=== PATIENT | female | born 1980 | race Caucasian/White ===

== ENCOUNTER 2021-06-06 02:44 | Emergency (ER) | payer MEDICAID ==
[~2021-06-06] VITALS: Ht 165.1 cm; Wt 104.3 kg
[2021-06-06 02:48] VITALS: BP 121/71
--- NOTE | 2021-06-06 02:52 | NUR ---
TO LOBBY FOLLOWING TRIAGE
--- NOTE | 2021-06-06 03:00 | NUR ---
ABDOMINAL PAIN AT HOME X 1.5 HOURS. TRIED TO DRINK WATER BUT FELT NAUSEA
--- NOTE | 2021-06-06 06:31 | NUR ---
Dr. Archer examining patient.
[2021-06-06] MEDS ORDERED: DICYCLOMINE HCL LIQUID 20 MG, ALUMINUM HYD/MAG/SIMETHICONE 30 ML, LIDOCAINE VISCOUS 2% ... PO ONE ×3 (06:35)
[2021-06-06] MEDS ORDERED: OMEP40EC24 PO (06:45)
[2021-06-06] MEDS ORDERED: ONDA8TAB87 PO (06:45)
[2021-06-06] MEDS ORDERED: IBUP-2213 PO (06:45)
[2021-06-06] MEDS ORDERED: ALUMINUM HYD/MAG/SIMETHICONE 30 ML UDC ONE (06:58)
[2021-06-06] MEDS ORDERED: DICYCLOMINE HCL LIQUID 10 MG/5 ML UDC ONE (06:58)
[2021-06-06 07:00] VITALS: BP 121/71
--- NOTE | 2021-06-06 07:00 | NUR ---
Patient discharged with v/s stable. Written and verbal after care instructions given and explained. Patient alert, oriented and verbalized understanding of instructions. Ambulatory with steady gait. All questions addressed prior to discharge. ID band removed. Patient advised to follow up with PMD. Rx of REILOSEC & ZOFRAN given. Patient educated on indication of medication including possible reaction and side effects. Opportunity to ask questions provided and answered.
== END 2021-06-06 07:00 | disposition home or self-care (01) ==
LOC: MED 02:44
DX: R10.13 Epigastric pain (principal); R11.2 Nausea with vomiting, unspecified
CPT/HCPCS: 99283

== ENCOUNTER 2022-03-27 14:26 | Emergency (ER) | payer MEDICAID ==
[~2022-03-27] VITALS: Ht 165.1 cm; Wt 107.5 kg
[~2022-03-27 14:26] MED LIST: IBUP-2213 PO; OMEP40EC24 PO; ONDA8TAB87 PO
[2022-03-27 14:34] VITALS: BP 138/79
--- NOTE | 2022-03-27 14:50 | NUR ---
WALKED TO ROOM 4 WITH CO LEFT GROIN PAIN SECOND TO ABCESS. NO FURHTER CO. PT WAS A/OX4, SPEAKS FULL SENTENCES, FOLLOWS COMMAND, DENIES ALFARO AND DIZZINESS. NO SOB. BREATHINGE EVEN.
[2022-03-27] MEDS ORDERED: IBUP-2213 PO (15:10)
[2022-03-27] MEDS ORDERED: SULF-59 PO (15:10)
[2022-03-27] MEDS ORDERED: CEPH-588 PO (15:10)
[2022-03-27 15:15] VITALS: BP 127/67
[2022-03-27] MEDS ORDERED: IBUPROFEN 600 MG TAB PO ONE (15:15)
--- NOTE | 2022-03-27 15:45 | NUR ---
Patient discharged with v/s stable. Written and verbal after care instructions given and explained. Patient verbalized understanding. Ambulatory with steady gait. All questions addressed prior to discharge. Advised to follow up with PMD.
== END 2022-03-27 15:23 | disposition home or self-care (01) ==
LOC: MED 14:26
DX: L03.311 Cellulitis of abdominal wall (principal); R03.0 Elevated blood-pressure reading, without diagnosis of hypertension
CPT/HCPCS: 99284

== ENCOUNTER 2022-03-31 01:45 | Inpatient (IN) | payer MEDICAID ==
[~2022-03-31] VITALS: Ht 165.1 cm; Wt 108.0 kg
[~2022-03-31 01:45] MED LIST changes: +CEPH-588 PO; +SULF-59 PO
[2022-03-31 01:48] VITALS: BP 113/71
[2022-03-31] MEDS ORDERED: cefTRIAXone 1,000 MG in DEXT 5% MINI-BAG PLUS 50 ML IV ONE (01:55)
[2022-03-31 02:18] LABS: BASOPHILS # (AUTO) 0.1 K/uL (0.00-0.22); BASOPHILS % (AUTO) 0.7 % (0.0-2.0); EOSINOPHILS # (AUTO) 0.1 K/uL (0-0.4); HEMATOCRIT 32.8 % (36-48); HEMOGLOBIN 10.8 g/dL (12.0-16.0); LYMPHOCYTES # (AUTO) 2.7 K/uL (2.5-16.5); LYMPHOCYTES % (AUTO) 33.1 % (20.5-51.1); MEAN CORPUSCULAR HEMOGLOBIN 23 pg (27-31); MEAN CORPUSCULAR HGB CONC 33 g/dL (33-37); MONOCYTES # (AUTO) 0.6 K/uL (0.8-1.0); MONOCYTES % (AUTO) 7.3 % (1.7-9.3); NEUTROPHILS # (AUTO) 4.7 K/uL (1.8-7.7); NEUTROPHILS % (AUTO) 57.9 % (42.2-75.2); PLATELET COUNT (AUTO) 342 K/uL (140-450); RED BLOOD CELL COUNT(AUTO) 4.69 MIL/uL (4.20-5.40); RED CELL DISTRIBUTION WIDTH 16.9 % (11.6-13.7); WHITE BLOOD COUNT (AUTO) 8.1 K/uL (4.8-10.8)
--- NOTE | 2022-03-31 02:21 | NUR ---
XR AT BEDSIDE
[2022-03-31] MEDS ORDERED: cefTRIAXone 1,000 MG VIAL ONE (02:23)
--- NOTE | 2022-03-31 02:46 | NUR ---
IRRIGATED AND CLEANED WOUND WITH 30CC OF NS AND GAUZE. APPLIED NON ADHERENT DRESSING AT THE SITE. PATIENT TOLERATED WELL BUT DID COMPLAIN OF BURNING AT THE SITE.
[2022-03-31 03:19] LABS: ALBUMIN 3.6 g/dL (3.4-5.0); ANION GAP 13.9 (8-16); CARBON DIOXIDE 25.3 mmol/L (21-32); CREATININE 1.1 mg/dL (0.6-1.3); POTASSIUM 4.2 mmol/L (3.5-5.1); TOTAL BILIRUBIN 0.2 mg/dL (0.0-1.0)
[2022-03-31] MEDS ORDERED: KETOROLAC 30 MG/ML VIAL IVP ONE (04:05)
[2022-03-31] MEDS ORDERED: VANCOMYCIN PER PHARMACY MC PRN (04:15)
[2022-03-31] MEDS ORDERED: VANCOMYCIN 1GM/DEXT 5% PREMIX 200 ML IV SCH ×2 (04:30→09:00)
[2022-03-31 06:41] LABS: BASOPHILS % (AUTO) 0.6 % (0.0-2.0); EOSINOPHILS # (AUTO) 0.1 K/uL (0-0.4); EOSINOPHILS % (AUTO) 1.1 % (0.0-4.0); HEMATOCRIT 32.7 % (36-48); HEMOGLOBIN 10.6 g/dL (12.0-16.0); LYMPHOCYTES # (AUTO) 2.5 K/uL (2.5-16.5); LYMPHOCYTES % (AUTO) 34.8 % (20.5-51.1); MEAN CORPUSCULAR HEMOGLOBIN 23 pg (27-31); MEAN CORPUSCULAR HGB CONC 32 g/dL (33-37); MEAN CORPUSCULAR VOLUME 70.8 fL (80-94); MONOCYTES # (AUTO) 0.5 K/uL (0.8-1.0); MONOCYTES % (AUTO) 7.6 % (1.7-9.3); NEUTROPHILS % (AUTO) 55.9 % (42.2-75.2); PLATELET COUNT (AUTO) 309 K/uL (140-450); RED BLOOD CELL COUNT(AUTO) 4.63 MIL/uL (4.20-5.40); RED CELL DISTRIBUTION WIDTH 16.7 % (11.6-13.7); WHITE BLOOD COUNT (AUTO) 7.2 K/uL (4.8-10.8)
[2022-03-31 06:56] LABS: ANION GAP 11.3 (8-16); POTASSIUM 4.3 mmol/L (3.5-5.1)
--- NOTE | 2022-03-31 07:16 | NUR ---
Pt report given to Svetlana SHAH. Transfer of care at this time.
[2022-03-31] MEDS ORDERED: ONDANSETRON 4 MG/2 ML VIAL IVP PRN (07:20)
[2022-03-31] MEDS ORDERED: POTASSIUM CHLORIDE 10 MEQ TABER PO PRN (07:20)
[2022-03-31] MEDS ORDERED: ZOLPIDEM 10 MG TAB PO PRN (07:20)
[2022-03-31] MEDS ORDERED: MORPHINE SULFATE 2 MG/ML SYR IVP PRN (07:20)
[2022-03-31] MEDS ORDERED: DOCUSATE SODIUM 100 MG GELCAP PO PRN (07:20)
[2022-03-31] MEDS ORDERED: ACETAMINOPHEN 325 MG TAB PO PRN (07:20)
--- NOTE | 2022-03-31 07:43 | NUR ---
Patient will be admitted to care of DR. TEJEDA. Admited to Med/Surg. Will go to room 126A. Belongings list completed. BEDSIDE REPORT GIVEN TO RYDER.
--- NOTE | 2022-03-31 07:50 | NUR ---
RECEIVED REPORT FROM ED NURSE FOR CONTINUITY OF CARE. PT WAS TRANSPORTED FROM ED VIA WHEELCHAIR, CURRENTLY AWAKE AND IN STABLE CONDITION. PT A/OX4, CZECH SPEAKING. BREATHING IS EVEN, REGULAR AND UNLABORED ON ROOM AIR. PT IS CONTINENT OF THE BOWEL AND BLADDER. PT IS AMBULATORY WITH STEADY GAIT. QUARTER-SIZED OPEN ABSCESS ON LEFT LOWER ABDOMEN IDENTIFIED, DRESSED WITH NONADHERENT DRESSING AND TAPE. MINOR PURULENT DISCHARGE NOTED. PT DENIES PAIN AT THIS TIME.
[2022-03-31 08:00] VITALS: BP 116/80
--- NOTE | 2022-03-31 10:00 | NUR ---
PT COMPLAINED OF IV SITE. NEW IV INSERTED IN RIGHT FOREARM. PT DENIES PAIN AT THIS TIME. PT IN STABLE CONDITION.
[2022-03-31] MEDS: VANCOMYCIN 1,500 MG in DEXTROSE 5% 500 ML IV SCH ×2 (10:31→21:47)
--- NOTE | 2022-03-31 15:47 | NUR ---
PATIENT HAS BEEN SCREENED AND CATEGORIZED LOW NUTRITION RISK. PATIENT WILL BE SEEN WITHIN 7 DAYS OF ADMISSION. 04/06/[address]
[2022-03-31 16:00] VITALS: BP 112/74
--- NOTE | 2022-03-31 19:30 | NUR ---
ENDORSED PT TO NIGHTSHIFT NURSE. PT IN STABLE CONDITION.
--- NOTE | 2022-03-31 20:00 | NUR ---
RECEIVED BEDSIDE REPORT FROM THE DAY NURSE REGARDING THE PATIENT FOR CONTINUITY OF CARE. RECEIVED PATIENT A/A/OX4, SITTING IN BED WATCHING TV. PT NOT IN ANY DISTRESS AND NO COMPLAIN AT THIS TIME. PT A/A/OX4, AMBULATORY. DENIES ANY CHEST PAIN, SOB,PALPITATIONS AND DIZZINESS. PT LUQ ABDOMINAL DRESSING C/D/I. DISCUSSED POC WITH THE PATIENT AND VERBALIZED UNDERSTANDING. FALL PRECAUTION IMPLEMENTED. INSTRUCTED TO CALL FOR ASSISTANCE AT ALL TIMES. CALL LIGHT WITHIN REACH. WILL CONTINUE POC.
[2022-03-31] MEDS ORDERED: VANCOMYCIN 1,000 MG VIAL ONE (21:28)
[2022-03-31] MEDS ORDERED: VANCOMYCIN 500 MG VIAL ONE (21:28)
--- NOTE | 2022-03-31 22:00 | NUR ---
ALL DUE MEDICATIONS GIVEN ORDERED. NO ADVERSE DRUG REACTION NOTED AND NO COMPLAIN FROM THE PATIENT. WILL CONTINUE OBSERVATION. CALL LIGHT WITHIN REACH.
[2022-04-01] VITALS: BP 120/62
[2022-04-01] MEDS ORDERED: MAG SULF 2000 MG/WATER PREMIX 50 ML IV PRN
--- NOTE | 2022-04-01 | NUR ---
PATIENT VITAL SIGNS STABLE, AFEBRILE, SATING 100% ON RA. DENIES PAIN AT THIS TIME. NOT IN ANY DISTRESS. WILL CONTINUE OBSERVATION. CALL LIGHT WITHIN REACH.
--- NOTE | 2022-04-01 02:00 | NUR ---
PATIENT ASLEEP AT THIS TIME. VISIBLE CHEST RISE AND FALL NOTED. PT NOT IN ANY DISTRESS. WILL CONTINUE OBSERVATION.C ALL LIGHT WITHIN REACH.
--- NOTE | 2022-04-01 04:00 | NUR ---
MADE ROUNDS . PATIENT STILL ASLEEP ,EASY TO AROUSE. NOT IN ANY DISTRESS. WILL CONTINUE OBSERVATION.
--- NOTE | 2022-04-01 06:00 | NUR ---
NO ACUTE EVENT THROUGHOUT THE NIGHT. PATIENT NOT IN ANY DISTRESS AND NO COMPLAIN AT THIS TIME. PATIENT STABLE. ALL NEEDS ATTENDED. WILL ENDORSE THE PATIENT TO THE ONCOMING NURSE FOR CONTINUITY OF CARE.
[2022-04-01 06:12] LABS: ANION GAP 11.3 (8-16); CREATININE 0.8 mg/dL (0.6-1.3); POTASSIUM 4.3 mmol/L (3.5-5.1)
[2022-04-01 06:21] LABS: BASOPHILS % (AUTO) 0.7 % (0.0-2.0); EOSINOPHILS # (AUTO) 0.1 K/uL (0-0.4); EOSINOPHILS % (AUTO) 1.2 % (0.0-4.0); HEMATOCRIT 34.8 % (36-48); HEMOGLOBIN 11.3 g/dL (12.0-16.0); LYMPHOCYTES # (AUTO) 2.3 K/uL (2.5-16.5); LYMPHOCYTES % (AUTO) 36.4 % (20.5-51.1); MEAN CORPUSCULAR HEMOGLOBIN 23 pg (27-31); MEAN CORPUSCULAR HGB CONC 32 g/dL (33-37); MEAN CORPUSCULAR VOLUME 70.9 fL (80-94); MONOCYTES # (AUTO) 0.5 K/uL (0.8-1.0); MONOCYTES % (AUTO) 8.1 % (1.7-9.3); NEUTROPHILS # (AUTO) 3.4 K/uL (1.8-7.7); NEUTROPHILS % (AUTO) 53.6 % (42.2-75.2); PLATELET COUNT (AUTO) 301 K/uL (140-450); RED BLOOD CELL COUNT(AUTO) 4.91 MIL/uL (4.20-5.40); RED CELL DISTRIBUTION WIDTH 16.2 % (11.6-13.7); WHITE BLOOD COUNT (AUTO) 6.3 K/uL (4.8-10.8)
--- NOTE | 2022-04-01 07:26 | NUR ---
ENDORSED PATIENT TO THE ONCOMING RN FOR CONTINUITY OF CARE. PATIENT STABLE. SIGNING OFF.
--- NOTE | 2022-04-01 07:28 | NUR ---
RECEIVED BEDSIDE REPORT FROM KIDS ACTIVITIES COACH NURSE FOR CONTINUOUS OF CARE, PT RESTING, NO DISTRESS NOTED, IV TO LEFT HAND 22G PATENT INTACT, SL. PT ON ROOM AIR, NO SOB NOTED, INITIAL ASSESSMENT DONE, ALL SAFETY PRECAUTION MET, CALL LIGHT WITHIN REACH, WILL CONTINUE TO MONITOR.
[2022-04-01 08:00] VITALS: BP 115/60
[2022-04-01] MEDS ORDERED: AMOX-999 PO (09:17)
--- NOTE | 2022-04-01 09:50 | NUR ---
WOUND CARE NOTE: LLQ ABDOMEN WOUND FULL THICKNESS SKIN LOSS 2X3X0.5CM OVAL SHAPE, WOUND BED 100% PINK TISSUE, SMALL AMOUNT SEROUS DRAINAGE, NO ODOR, WOUND EDGE FLAT AND ATTACHED, LILIAN WOUND SKIN NORMAL BODY TEMP, SOFT, NO INDURATION PALPABLE, DENY PAIN WHEN AREA TOUCHED. POC DISCUSSED WITH PT. WITH WOUND CARE TEACHING DONE. PT. VERBALIZES UNDERSTANDING. POC DISCUSSED WITH DR. TEJEDA. -CLEANSE LLQ ABDOMEN WOUND WITH WOUND CLEANSING SOLUTION, PAT DRY, APPLY SILVASORB GEL AND COVER WITH DRY DRESSING DAILY AND PRN IF SOILING.
[2022-04-01] MEDS: VANCOMYCIN 1,500 MG in DEXTROSE 5% 500 ML IV SCH (10:05)
--- NOTE | 2022-04-01 11:56 | NUR ---
WOUND CARE DONE, AND WOUND CARE TEACHING DONE, PT STATED UNDERSTANDING, DAUGHTER AT BED SIDE STATED UNDERSTANDING. WILL CONTINUE TO MONITOR.
--- NOTE | 2022-04-01 13:30 | NUR ---
ALL DC PAPERS SIGNED, PT STATED UNDERSTANDING, WOUND CARE EDUCATION DONE. DAUGHTER AT BEDSIDE TRANSLATING FOR PT, ALL QUESTIONS ANSWERED.
[2022-04-02] MEDS ORDERED: GAUZE TP SCH (13:00)
== END 2022-04-01 14:30 | disposition home or self-care (01) | DRG 384 ==
LOC: MED 01:45 → MMU 04:16 → MTU 05:00 → MMU 06:25
PROVIDERS: ADMIT Family Medicine; ATTEND Family Medicine
DX: S31.104A Unspecified open wound of abdominal wall, left lower quadrant without penetration into peritoneal cavity, initial encounter (principal); L03.311 Cellulitis of abdominal wall; D50.9 Iron deficiency anemia, unspecified; L98.499 Non-pressure chronic ulcer of skin of other sites with unspecified severity; Z20.822 Contact with and (suspected) exposure to COVID-19; X58.XXXA Exposure to other specified factors, initial encounter; Y93.89 Activity, other specified; Y92.89 Other specified places as the place of occurrence of the external cause; Y99.9 Unspecified external cause status
CPT/HCPCS: 36415; 71045; 76881; 80048; 80053; 83036; 83605; 83735; 83880; 84484; 85025; 87040; 93005; 96365; 96375; 99285; J0696; J1644; J1885; J3370; J7060; Q0092